=== PATIENT | female | born 1995 | race Caucasian/White ===

== ENCOUNTER 2018-11-29 17:06 | Inpatient (IN) | payer BC, OTHER ==
[2018-11-29] MEDS ORDERED: Sodium Chloride 0.9% 10 ML SDV IV PRN (23:05)
[2018-11-29] MEDS ORDERED: Tranexamic Acid 1,000 MG in Sodium Chloride 0.9% 100 ML IV PRN (23:05)
[2018-11-29] MEDS ORDERED: Nalbuphine 10 MG/1 ML Vial IVPUSH PRN (23:05)
[2018-11-29] MEDS ORDERED: Butorphanol 1 MG/ML SDV IVPUSH PRN (23:05)
[2018-11-29] MEDS ORDERED: Methylergonovine 0.2 MG/1 ML Amp IM PRN (23:05)
[2018-11-29] MEDS ORDERED: Water For Irrigation,Sterile 1,000 ML Container IRR PRN (23:05)
[2018-11-29] MEDS ORDERED: Carboprost Tromethamine 250 MCG/1 ML Amp IM PRN (23:05)
[2018-11-29] MEDS ORDERED: Misoprostol 200 MCG Tab PO PRN (23:05)
[2018-11-29] MEDS ORDERED: Sodium Chloride 0.9% 10 ML Syringe FLUSH PRN (23:05)
[2018-11-29] MEDS ORDERED: Lidocaine 1% 50 ML MDV INJECT PRN (23:05)
[2018-11-29] MEDS ORDERED: Sodium Chloride 0.9% 2.5 ML Syringe FLUSH PRN (23:05)
[2018-11-29] MEDS ORDERED: Oxytocin/0.9 % Sodium Chloride 30 UNIT/500 ML BAG IV SCH (23:15)
[2018-11-30] MEDS: Lactated Ringers 1,000 ML IV SCH ×4 (06:40→18:49)
[2018-11-30] MEDS ORDERED: Bupivacaine 0.25% 10 ML SDV ONE ×2 (06:50→16:03)
[2018-11-30] MEDS ORDERED: fentaNYL 100 MCG/2 ML SDV ONE (06:50)
--- NOTE | 2018-11-30 07:04 | PCM.PREANE ---
Preanesthetic Assessment - Procedure Proposed Procedure: DK - Anesthesia/Transfusion/Family Hx Anesthesia History: No Prior Anesthesia Family History of Anesthesia Reaction: No Transfusion History: No Prior Transfusion(s) Intubation History: Unknown - Review of Systems General: No Symptoms Pulmonary: No Symptoms Cardiovascular: No Symptoms Gastrointestinal: No Symptoms Neurological: No Symptoms Other: Reports: None - Physical Assessment Height: 5 ft Weight: 74.843 kg ASA Class: 2 Mental Status: Alert & Oriented x3 Airway Class: Mallampati = 2 Dentition: Reports: Normal Dentition ROM/Head Extension: Full Lungs: Clear to Auscultation, Normal Respiratory Effort Cardiovascular: Regular Rate, Regular Rhythm - Lab Values: Laboratory Last Values WBC 14.62 K/uL (4.0-11.0) H 11/29/18 23:43 RBC 4.02 M/uL (4.30-5.90) L 11/29/18 23:43 Hgb 12.0 g/dL (12.0-16.0) 11/29/18 23:43 Hct 36.3 % (36.0-46.0) 11/29/18 23:43 MCV 90.3 fL (80.0-98.0) 11/29/18 23:43 MCH 29.9 pg (27.0-32.0) 11/29/18 23:43 MCHC 33.1 g/dL (31.0-37.0) 11/29/18 23:43 RDW Std Deviation 46.1 fl (28.0-62.0) 11/29/18 23:43 RDW Coeff of Abiola 14 % (11.0-15.0) 11/29/18 23:43 Plt Count 212 K/uL (150-400) 11/29/18 23:43 MPV 10.80 fL (7.40-12.00) 11/29/18 23:43 Nucleated RBC % 0.0 /100WBC 11/29/18 23:43 Nucleated RBCs # 0 K/uL 11/29/18 23:43 Membrane Rupture POSITIVE 11/29/18 19:50 Blood Type O POSITIVE 11/29/18 23:43 Antibody Screen NEGATIVE 11/29/18 23:43 - Allergies Allergies/Adverse Reactions: Allergies Allergy/AdvReac Type Severity Reaction Status Date / Time No Known Allergies Allergy Verified 09/09/18 15:38 - Blood Blood Available: No Product(s) Available: None - Anesthesia Plan Pre-Op Medication Ordered: None - Acknowledgements Anesthesia Type Planned: Epidural Pt an Appropriate Candidate for the Planned Anesthesia: Yes Alternatives and Risks of Anesthesia Discussed w Pt/Guardian: Yes Pt/Guardian Understands and Agrees with Anesthesia Plan: Yes PreAnesthesia Questionnaire - Past Health History Medical/Surgical History: Denies Medical/Surgical History HEENT History: Reports: None Cardiovascular History: Reports: None Respiratory History: Reports: Asthma Gastrointestinal History: Reports: None Genitourinary History: Reports: None 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: Musculoskeletal History: Reports: None Neurological History: Reports: None Psychiatric History: Reports: None Endocrine/Metabolic History: Reports: None Hematologic History: Reports: None Immunologic History: Reports: None Oncologic (Cancer) History: Reports: None Dermatologic History: Reports: None - Infectious Disease History Infectious Disease History: Reports: None - Past Surgical History HEENT Surgical History: Reports: None Cardiovascular Surgical History: Reports: None Respiratory Surgical History: Reports: None GI Surgical History: Reports: None Female Surgical History: Reports: None Musculoskeletal Surgical History: Reports: None - SUBSTANCE USE Smoking Status *Q: Never Smoker Second Hand Smoke Exposure: No Recreational Drug Use History: No - HOME MEDS Home Medications: Home Meds PNV #116/Iron Fumarate/FA/DHA [Expecta Combo Pack] 1 tab PO DAILY 09/09 [History] - CURRENT (IN HOUSE) MEDS Current Meds: Current Medications Butorphanol Tartrate (Stadol) 1 mg IVPUSH Q1H PRN PRN Reason: Pain Last Admin: 11/30/18 03:11 Dose: 1 mg Carboprost Tromethamine (Hemabate Ds) 250 mcg IM ASDIRECTED PRN PRN Reason: Post Hemorrhage Tranexamic Acid 1,000 mg/ (Sodium Chloride) 110 mls @ 660 mls/hr IV ONETIME PRN PRN Reason: Bleeding Lactated Ringer's (Ringers, Lactated) 1,000 mls @ 150 mls/hr IV ASDIRECTED VIPIN Last Admin: 11/30/18 06:40 Dose: 999 mls/hr Oxytocin/Sodium Chloride (Oxytocin 30 Unit/500 Ml-Ns) 30 unit in 500 mls @ 500 mls/hr IV TITRATE VIPIN Lidocaine HCl (Xylocaine 1%) 50 ml INJECT ONETIME PRN PRN Reason: Laceration repair Methylergonovine Maleate (Methergine) 0.2 mg IM ASDIRECTED PRN PRN Reason: Post Hemorrhage Misoprostol (Cytotec) 200 mcg PO ONETIME PRN PRN Reason: Post Hemorrhage Nalbuphine HCl (Nubain) 10 mg IVPUSH Q1H PRN PRN Reason: Pain (severe 7-10) Sodium Chloride (Saline Flush) 10 ml FLUSH ASDIRECTED PRN PRN Reason: Keep Vein Open Sodium Chloride (Saline Flush) 2.5 ml FLUSH ASDIRECTED PRN PRN Reason: Keep Vein Open Sodium Chloride (Normal Saline) 10 ml IV ASDIRECTED PRN PRN Reason: IV Use Sterile Water (Sterile Water For Irrigation) 1,000 ml IRR ASDIRECTED PRN PRN Reason: delivery Discontinued Medications Bupivacaine HCl (Sensorcaine-Mpf 0.25%) Confirm Administered Dose 10 ml .ROUTE .STK-MED ONE Stop: 11/30/18 06:51 Fentanyl (Sublimaze) Confirm Administered Dose 100 mcg .ROUTE .STK-MED ONE Stop: 11/30/18 06:51 Fentanyl/Bupivacaine HCl (Ozygoraj-Rhhzn-Pw 2 Mcg/Ml-0.125%) Confirm Administered Dose 100 mls @ as directed .ROUTE .STK-MED ONE Stop: 11/30/18 06:51
[2018-11-30] MEDS ORDERED: Oxytocin/0.9 % Sodium Chloride 30 UNIT/500 ML BAG IV SCH ×2 (09:30→09:45)
[2018-11-30] MEDS ORDERED: ceFAZolin 1 GM in Premix Bag 1 BAG IV ONE (21:12)
[2018-11-30] MEDS ORDERED: Lanolin 100% Cream 7 GM Tube TOP PRN (21:39)
[2018-11-30] MEDS ORDERED: Acetaminophen 500 MG Tab PO PRN ×2 (21:39)
[2018-11-30] MEDS ORDERED: Ibuprofen 400 MG Tab PO PRN (21:39)
[2018-11-30] MEDS ORDERED: Bisacodyl 10 MG Supp RECTAL PRN (21:39)
--- NOTE | 2018-11-30 21:45 | PCM.DEL ---
L & D Note - General Info Date of Service: 11/30/18 - Delivery Note Labor: Augmented by Oxytocin Delivery Outcome: Livebirth Delivery Method: Spontaneous Vaginal Delivery-Single Presentation: Compound (Head, with hand) Nuchal Cord: Present, Reduced Anesthesia Type: Epidural, Local (Lidocaine used due to pain at time of repair.) Amniotic Fluid Description: Meconium at noted at delivery of head/body. Episiotomy Type: None Laceration: 3rd Degree (Partial third degree) Suture type: Vicryl Suture size: 4-0 Placenta: Intact, Spontaneous Estimated Blood Loss: 200 Resuscitation Needed: No - General Info Date of Service: 11/30/18 - Patient Data Weight - Most Recent: 74.843 kg Lab Results Last 24 Hours: Laboratory Results - last 24 hr 11/29/18 11/29/18 Range/Units 23:43 23:43 WBC 14.62 H (4.0-11.0) K/uL RBC 4.02 L (4.30-5.90) M/uL Hgb 12.0 (12.0-16.0) g/dL Hct 36.3 (36.0-46.0) % MCV 90.3 (80.0-98.0) fL MCH 29.9 (27.0-32.0) pg MCHC 33.1 (31.0-37.0) g/dL RDW Std Deviation 46.1 (28.0-62.0) fl RDW Coeff of Abiola 14 (11.0-15.0) % Plt Count 212 (150-400) K/uL MPV 10.80 (7.40-12.00) fL Nucleated RBC % 0.0 /100WBC Nucleated RBCs # 0 K/uL Blood Type O POSITIVE Antibody Screen NEGATIVE Med Orders - Current: Current Medications Discontinued Medications Bupivacaine HCl (Sensorcaine-Mpf 0.25%) Confirm Administered Dose 10 ml .ROUTE .STK-MED ONE Stop: 11/30/18 06:51 Bupivacaine HCl (Sensorcaine-Mpf 0.25%) Confirm Administered Dose 10 ml .ROUTE .STK-MED ONE Stop: 11/30/18 16:04 Butorphanol Tartrate (Stadol) 1 mg IVPUSH Q1H PRN PRN Reason: Pain Last Admin: 11/30/18 03:11 Dose: 1 mg Carboprost Tromethamine (Hemabate Ds) 250 mcg IM ASDIRECTED PRN PRN Reason: Post Hemorrhage Fentanyl (Sublimaze) Confirm Administered Dose 100 mcg .ROUTE .[facility]-MED ONE Stop: 11/30/18 06:51 Tranexamic Acid 1,000 mg/ (Sodium Chloride) 110 mls @ 660 mls/hr IV ONETIME PRN PRN Reason: Bleeding Lactated Ringer's (Ringers, Lactated) 1,000 mls @ 150 mls/hr IV ASDIRECTED VIPIN Last Admin: 11/30/18 18:49 Dose: 150 mls/hr Oxytocin/Sodium Chloride (Oxytocin 30 Unit/500 Ml-Ns) 30 unit in 500 mls @ 500 mls/hr IV TITRATE VIPIN Fentanyl/Bupivacaine HCl (Tczgyznz-Fmhfu-Ul 2 Mcg/Ml-0.125%) Confirm Administered Dose 100 mls @ [facility]: 11/30/18 06:51 Oxytocin/Sodium Chloride (Oxytocin 30 Unit/500 Ml-Ns) 30 unit in 500 mls @ 2 mls/hr IV TITRATE VIPIN; Protocol Oxytocin/Sodium Chloride (Oxytocin 30 Unit/500 Ml-Ns) 30 unit in 500 mls @ 2 mls/hr IV TITRATE VIPIN; Protocol Last Infusion: 11/30/18 20:44 Dose: 999 munits/min, 999 mls/hr Fentanyl/Bupivacaine HCl (Xpayetuc-Ueoah-Jl 2 Mcg/Ml-0.125%) Confirm Administered Dose 100 mls @ as directed .ROUTE .[facility] ONE Stop: 11/30/18 16:03 Cefazolin Sodium/Dextrose 1 gm (/ Premix) 50 mls @ 100 mls/hr IV ONETIME ONE Stop: 11/30/18 21:41 Last Admin: 11/30/18 21:21 Dose: 100 mls/hr Cefazolin Sodium/Dextrose (Ancef) Confirm Administered Dose 50 mls @ as directed .ROUTE .[facility] ONE Stop: 11/30/18 21:19 Lidocaine HCl (Xylocaine 1%) 50 ml INJECT ONETIME PRN PRN Reason: Laceration repair Last Admin: 11/30/18 21:05 Dose: 50 ml Methylergonovine Maleate (Methergine) 0.2 mg IM ASDIRECTED PRN PRN Reason: Post Hemorrhage Misoprostol (Cytotec) 200 mcg PO ONETIME PRN PRN Reason: Post Hemorrhage Nalbuphine HCl (Nubain) 10 mg IVPUSH Q1H PRN PRN Reason: Pain (severe 7-10) Sodium Chloride (Saline Flush) 10 ml FLUSH ASDIRECTED PRN PRN Reason: Keep Vein Open Sodium Chloride (Saline Flush) 2.5 ml FLUSH ASDIRECTED PRN PRN Reason: Keep Vein Open Sodium Chloride (Normal Saline) 10 ml IV ASDIRECTED PRN PRN Reason: IV Use Sterile Water (Sterile Water For Irrigation) 1,000 ml IRR ASDIRECTED PRN PRN Reason: delivery Last Admin: 11/30/18 21:05 Dose: 1,000 ml - Problem List & Annotations (1) Vaginal delivery SNOMED Code(s): 764993673 Code(s): O80 - ENCOUNTER FOR FULL-TERM UNCOMPLICATED DELIVERY Status: Acute Current Visit: Yes (2) Third degree laceration of perineum, type 3a SNOMED Code(s): 732672671 Code(s): O70.21 - THIRD DEGREE PERINEAL LACERATION DURING DELIVERY, IIIA Status: Acute Current Visit: Yes - Problem List Review Problem List Initiated/Reviewed/Updated: Yes - My Orders Last 24 Hours: My Active Orders 11/30/18 21:38 Resuscitation Status Routine 11/30/18 21:39 Patient Status [ADT] Routine May Shower [RC] ASDIRECTED Up ad [place] [RC] ASDIRECTED Vital Signs [RC] PER UNIT ROUTINE Acetaminophen [Tylenol Extra Strength] 1,000 mg PO Q4H PRN Acetaminophen [Tylenol Extra Strength] 500 mg PO Q4H PRN Benzocaine/Menthol [Dermoplast Pain Relief 20%-0.5% [place]] 78 gm TOP ASDIRECTED PRN Bisacodyl [Dulcolax] 10 mg RECTAL ONETIME PRN Docusate Sodium [Colace] 100 mg PO BID PRN Ibuprofen [Motrin] 400 mg PO Q4H PRN Ibuprofen [Motrin] 800 mg PO Q6H PRN Lanolin [Lansinoh HPA] See Dose Instructions TOP ASDIRECTED PRN Witch Christine [Tucks] 1 pad TOP ASDIRECTED PRN oxyCODONE 5 mg PO Q2H PRN Assess Lochia [WOMSER] Per Unit Routine Assess Uterine Involution [WOMSER] Per Unit Routine Peripheral IV Discontinue [OM.PC] Routine 12/01/18 05:11 HEMOGLOBIN/HEMATOCRIT,HH [HEME] Timed - Assessment Assessment:: Mother and baby doing well. - Plan Plan:: To post- recovery.
[2018-11-30] MEDS: Witch Hazel Medicated Pads 40/Jar TOP PRN (22:09)
[2018-11-30] MEDS: Docusate Sodium 100 MG Cap PO PRN (22:09)
[2018-11-30] MEDS: Benzocaine/Menthol 20%-0.5% Spray 78 GM Cannister TOP PRN (22:10)
[2018-12-01] MEDS: oxyCODONE 5 MG Tab PO PRN ×3 (00:19→15:38)
[2018-12-01] MEDS: Ibuprofen 800 MG Tab PO PRN ×4 (00:20→20:29)
--- NOTE | 2018-12-01 08:01 | PCM.PNPP ---
- General Info Date of Service: 12/01/18 Functional Status: Reports: Pain Controlled, Tolerating Diet, Ambulating, Urinating - Review of Systems General: Denies: Fever, Weakness, Fatigue Pulmonary: Denies: Shortness of Breath, Pleuritic Chest Pain, Cough Cardiovascular: Denies: Chest Pain, Palpitations, Dyspnea on Exertion Gastrointestinal: Denies: Abdominal Pain Genitourinary: Denies: Dysuria - General Info Date of Service: 12/01/18 - Patient Data Vital Signs - Most Recent: Last Vital Signs Temp 36.9 C 12/01/18 04:40 Pulse 97 12/01/18 04:40 Resp 16 12/01/18 04:40 BP 94/50 L 12/01/18 04:40 Pulse Ox 96 12/01/18 04:40 Weight - Most Recent: 74.843 kg Lab Results - Last 24 Hours: Laboratory Results - last 24 hr 12/01/18 Range/Units 05:18 Hgb 10.0 L (12.0-16.0) g/dL Hct 30.7 L (36.0-46.0) % Med Orders - Current: Current Medications Acetaminophen (Tylenol Extra Strength) 500 mg PO Q4H PRN PRN Reason: Pain Acetaminophen (Tylenol Extra Strength) 1,000 mg PO Q4H PRN PRN Reason: Pain Benzocaine/Menthol (Dermoplast Pain Relief 20%-0.5% [place]) 78 gm TOP ASDIRECTED PRN PRN Reason: Perineal Comfort Measure Last Admin: 11/30/18 22:10 Dose: 1 can Bisacodyl (Dulcolax) 10 mg RECTAL ONETIME PRN PRN Reason: Constipation Docusate Sodium (Colace) 100 mg PO BID PRN PRN Reason: Constipation Last Admin: 11/30/18 22:09 Dose: 100 mg Emollient Ointment (Lansinoh Hpa) 0 gm TOP ASDIRECTED PRN PRN Reason: Sore Nipples Ibuprofen (Motrin) 400 mg PO Q4H PRN PRN Reason: Pain Ibuprofen (Motrin) 800 mg PO Q6H PRN PRN Reason: Pain Last Admin: 12/01/18 07:47 Dose: 800 mg Oxycodone HCl (Oxycodone) 5 mg PO Q2H PRN PRN Reason: Pain Last Admin: 12/01/18 07:46 Dose: 5 mg Witch Christine (Tucks) 1 pad TOP ASDIRECTED PRN PRN Reason: comfort care Last Admin: 11/30/18 22:09 Dose: 1 tub Discontinued Medications Bupivacaine HCl (Sensorcaine-Mpf 0.25%) Confirm Administered Dose 10 ml .ROUTE .STK-MED ONE Stop: 11/30/18 06:51 Bupivacaine HCl (Sensorcaine-Mpf 0.25%) Confirm Administered Dose 10 ml .ROUTE .STK-MED ONE Stop: 11/30/18 16:04 Butorphanol Tartrate (Stadol) 1 mg IVPUSH Q1H PRN PRN Reason: Pain Last Admin: 11/30/18 03:11 Dose: 1 mg Carboprost Tromethamine (Hemabate Ds) 250 mcg IM ASDIRECTED PRN PRN Reason: Post Hemorrhage Fentanyl (Sublimaze) Confirm Administered Dose 100 mcg .ROUTE .STK-MED ONE Stop: 11/30/18 06:51 Tranexamic Acid 1,000 mg/ (Sodium Chloride) 110 mls @ 660 mls/hr IV ONETIME PRN PRN Reason: Bleeding Lactated Ringer's (Ringers, Lactated) 1,000 mls @ 150 mls/hr IV ASDIRECTED VIPIN Last Admin: 11/30/18 18:49 Dose: 150 mls/hr Oxytocin/Sodium Chloride (Oxytocin 30 Unit/500 Ml-Ns) 30 unit in 500 mls @ 500 mls/hr IV TITRATE VIPIN Fentanyl/Bupivacaine HCl (Shosfcjc-Wygkr-Xh 2 Mcg/Ml-0.125%) Confirm Administered Dose 100 mls @ as directed .ROUTE .STK-MED ONE Stop: 11/30/18 06:51 Oxytocin/Sodium Chloride (Oxytocin 30 Unit/500 Ml-Ns) 30 unit in 500 mls @ 2 mls/hr IV TITRATE VIPIN; Protocol Oxytocin/Sodium Chloride (Oxytocin 30 Unit/500 Ml-Ns) 30 unit in 500 mls @ 2 mls/hr IV TITRATE VIPIN; Protocol Last Infusion: 11/30/18 20:44 Dose: 999 munits/min, 999 mls/hr Fentanyl/Bupivacaine HCl (Tujqhmin-Exlek-Om 2 Mcg/Ml-0.125%) Confirm Administered Dose 100 mls @ as directed .ROUTE .STK-MED ONE Stop: 11/30/18 16:03 Cefazolin Sodium/Dextrose 1 gm (/ Premix) 50 mls @ 100 mls/hr IV ONETIME ONE Stop: 11/30/18 21:41 Last Admin: 11/30/18 21:21 Dose: 100 mls/hr Cefazolin Sodium/Dextrose (Ancef) Confirm Administered Dose 50 mls @ as directed .ROUTE .STK-MED ONE Stop: 11/30/18 21:19 Lidocaine HCl (Xylocaine 1%) 50 ml INJECT ONETIME PRN PRN Reason: Laceration repair Last Admin: 11/30/18 21:05 Dose: 50 ml Methylergonovine Maleate (Methergine) 0.2 mg IM ASDIRECTED PRN PRN Reason: Post Hemorrhage Misoprostol (Cytotec) 200 mcg PO ONETIME PRN PRN Reason: Post Hemorrhage Nalbuphine HCl (Nubain) 10 mg IVPUSH Q1H PRN PRN Reason: Pain (severe 7-10) Sodium Chloride (Saline Flush) 10 ml FLUSH ASDIRECTED PRN PRN Reason: Keep Vein Open Sodium Chloride (Saline Flush) 2.5 ml FLUSH ASDIRECTED PRN PRN Reason: Keep Vein Open Sodium Chloride (Normal Saline) 10 ml IV ASDIRECTED PRN PRN Reason: IV Use Sterile Water (Sterile Water For Irrigation) 1,000 ml IRR ASDIRECTED PRN PRN Reason: delivery Last Admin: 11/30/18 21:05 Dose: 1,000 ml - Interaction Disposition, : [place] in Room with Family Infant Interaction: Holding Infant Infant Feeding: Breastfed ; Nursed Well Support Person: - Recovery Exam Fundal Tone: Firm Fundal Level: At Umbilicus Fundal Placement: Midline Lochia Amount: Scant Lochia Color: Rubra/Red Perineum Description: Intact, Minimal Bruising/Swelling Episiotomy/Laceration: Approximated Bladder Status: Voiding Urinary Elimination: Voided - Exam Neck: Supple Lungs: Clear to Auscultation, Normal Respiratory Effort Cardiovascular: Regular Rate, Regular Rhythm GI/Abdominal Exam: Normal Bowel Sounds, Soft, Non-Tender, No Distention, No Abnormal Bruit Extremities: Normal Inspection, Non-Tender, Normal Capillary Refill, Pedal Edema (trace) Skin: Warm, Dry, Intact - Problem List Review Problem List Initiated/Reviewed/Updated: Yes - Assessment Assessment:: PPD #1 s/p . Minimal pain and lochia. Work on breast feeding today. Anticipate discharge home tomorrow.. - Plan Plan:: Continue routine cares. Aim for discharge home tomorrow.
[2018-12-01] MEDS: Docusate Sodium 100 MG Cap PO PRN ×2 (11:15→20:29)
[2018-12-02] MEDS: Ibuprofen 800 MG Tab PO PRN (05:07)
--- NOTE | 2018-12-02 07:59 | PCM.PNPP ---
- General Info Date of Service: 12/02/18 Functional Status: Reports: Pain Controlled, Tolerating Diet, Ambulating, Urinating - Review of Systems General: Denies: Fever, Weakness, Fatigue Pulmonary: Denies: Shortness of Breath, Pleuritic Chest Pain, Cough Cardiovascular: Denies: Chest Pain, Palpitations, Dyspnea on Exertion Gastrointestinal: Denies: Abdominal Pain Genitourinary: Denies: Dysuria - General Info Date of Service: 12/02/18 - Patient Data Vital Signs - Most Recent: Last Vital Signs Temp 36.3 C 12/02/18 07:32 Pulse 87 12/02/18 07:32 Resp 16 12/02/18 07:32 BP 95/52 L 12/02/18 07:32 Pulse Ox 97 12/02/18 07:32 Weight - Most Recent: 74.843 kg Med Orders - Current: Current Medications Acetaminophen (Tylenol Extra Strength) 500 mg PO Q4H PRN PRN Reason: Pain Acetaminophen (Tylenol Extra Strength) 1,000 mg PO Q4H PRN PRN Reason: Pain Benzocaine/Menthol (Dermoplast Pain Relief 20%-0.5% [place]) 78 gm TOP ASDIRECTED PRN PRN Reason: Perineal Comfort Measure Last Admin: 11/30/18 22:10 Dose: 1 can Bisacodyl (Dulcolax) 10 mg RECTAL ONETIME PRN PRN Reason: Constipation Docusate Sodium (Colace) 100 mg PO BID PRN PRN Reason: Constipation Last Admin: 12/01/18 20:29 Dose: 100 mg Emollient Ointment (Lansinoh Hpa) 0 gm TOP ASDIRECTED PRN PRN Reason: Sore Nipples Last Admin: 12/01/18 09:34 Dose: 7 gm Ibuprofen (Motrin) 400 mg PO Q4H PRN PRN Reason: Pain Ibuprofen (Motrin) 800 mg PO Q6H PRN PRN Reason: Pain Last Admin: 12/02/18 05:07 Dose: 800 mg Oxycodone HCl (Oxycodone) 5 mg PO Q2H PRN PRN Reason: Pain Last Admin: 12/01/18 15:38 Dose: 5 mg Witch Christine (Tucks) 1 pad TOP ASDIRECTED PRN PRN Reason: comfort care Last Admin: 11/30/18 22:09 Dose: 1 tub Discontinued Medications Bupivacaine HCl (Sensorcaine-Mpf 0.25%) Confirm Administered Dose 10 ml .ROUTE .[facility]-MED ONE Stop: 11/30/18 06:51 Last Admin: 12/01/18 20:10 Dose: Not Given Bupivacaine HCl (Sensorcaine-Mpf 0.25%) Confirm Administered Dose 10 ml .ROUTE .[facility] ONE Stop: 11/30/18 16:04 Last Admin: 12/01/18 20:10 Dose: Not Given Butorphanol Tartrate (Stadol) 1 mg IVPUSH Q1H PRN PRN Reason: Pain Last Admin: 11/30/18 03:11 Dose: 1 mg Carboprost Tromethamine (Hemabate Ds) 250 mcg IM ASDIRECTED PRN PRN Reason: Post Hemorrhage Fentanyl (Sublimaze) Confirm Administered Dose 100 mcg .ROUTE .[facility] ONE Stop: 11/30/18 06:51 Last Admin: 12/01/18 20:10 Dose: Not Given Tranexamic Acid 1,000 mg/ (Sodium Chloride) 110 mls @ 660 mls/hr IV ONETIME PRN PRN Reason: Bleeding Lactated Ringer's (Ringers, Lactated) 1,000 mls @ 150 mls/hr IV ASDIRECTED VIPIN Last Admin: 11/30/18 18:49 Dose: 150 mls/hr Oxytocin/Sodium Chloride (Oxytocin 30 Unit/500 Ml-Ns) 30 unit in 500 mls @ 500 mls/hr IV TITRATE VIPIN Fentanyl/Bupivacaine HCl (Kbyumhgn-Bhqfy-Of 2 Mcg/Ml-0.125%) Confirm Administered Dose 100 mls @ as directed .ROUTE .[facility] ONE Stop: 11/30/18 06:51 Last Admin: 12/01/18 20:10 Dose: Not Given Oxytocin/Sodium Chloride (Oxytocin 30 Unit/500 Ml-Ns) 30 unit in 500 mls @ 2 mls/hr IV TITRATE VIPIN; Protocol Oxytocin/Sodium Chloride (Oxytocin 30 Unit/500 Ml-Ns) 30 unit in 500 mls @ 2 mls/hr IV TITRATE VIPIN; Protocol Last Infusion: 11/30/18 20:44 Dose: 999 munits/min, 999 mls/hr Fentanyl/Bupivacaine HCl (Lfqdjdde-Iehch-Se 2 Mcg/Ml-0.125%) Confirm Administered Dose 100 mls @ as directed .ROUTE .STK-MED ONE Stop: 11/30/18 16:03 Last Admin: 12/01/18 20:10 Dose: Not Given Cefazolin Sodium/Dextrose 1 gm (/ Premix) 50 mls @ 100 mls/hr IV ONETIME ONE Stop: 11/30/18 21:41 Last Admin: 11/30/18 21:21 Dose: 100 mls/hr Cefazolin Sodium/Dextrose (Ancef) Confirm Administered Dose 50 mls @ as directed .ROUTE .STK-MED ONE Stop: 11/30/18 21:19 Last Admin: 12/01/18 20:10 Dose: Not Given Lidocaine HCl (Xylocaine 1%) 50 ml INJECT ONETIME PRN PRN Reason: Laceration repair Last Admin: 11/30/18 21:05 Dose: 50 ml Methylergonovine Maleate (Methergine) 0.2 mg IM ASDIRECTED PRN PRN Reason: Post Hemorrhage Misoprostol (Cytotec) 200 mcg PO ONETIME PRN PRN Reason: Post Hemorrhage Nalbuphine HCl (Nubain) 10 mg IVPUSH Q1H PRN PRN Reason: Pain (severe 7-10) Sodium Chloride (Saline Flush) 10 ml FLUSH ASDIRECTED PRN PRN Reason: Keep Vein Open Sodium Chloride (Saline Flush) 2.5 ml FLUSH ASDIRECTED PRN PRN Reason: Keep Vein Open Sodium Chloride (Normal Saline) 10 ml IV ASDIRECTED PRN PRN Reason: IV Use Sterile Water (Sterile Water For Irrigation) 1,000 ml IRR ASDIRECTED PRN PRN Reason: delivery Last Admin: 11/30/18 21:05 Dose: 1,000 ml - Infant Interaction Infant Disposition, : in Room with Family Interaction: Holding Feeding: Breastfed ; Nursed Well Support Person: - Recovery Exam Fundal Tone: Firm Fundal Level: At Umbilicus Fundal Placement: Midline Lochia Amount: Scant Lochia Color: Rubra/Red Perineum Description: Edematous Other Perinuem Description: Third degree laceration,repaired Episiotomy/Laceration: Approximated Bladder Status: Nonpalpable, Voiding Urinary Elimination: Voided - Exam General: Alert, Oriented Neck: Supple Lungs: Clear to Auscultation, Normal Respiratory Effort Cardiovascular: Regular Rate, Regular Rhythm GI/Abdominal Exam: Normal Bowel Sounds, Soft, Non-Tender, No Distention Extremities: Normal Inspection, Non-Tender, Normal Capillary Refill, Pedal Edema (trace) Skin: Warm, Dry, Intact - Problem List & Annotations (1) Vaginal delivery SNOMED Code(s): 833550508 Code(s): O80 - ENCOUNTER FOR FULL-TERM UNCOMPLICATED DELIVERY Status: Acute Current Visit: Yes - Problem List Review Problem List Initiated/Reviewed/Updated: Yes - Assessment Assessment:: PPD #2 s/p . Minimal pain and lochia. Breast feeding well. Discharge home today. - Plan Plan:: Discharge instructions reviewed. Pelvic rest for 6 weeks. Can use OTC ibuprofen/ tylenol as needed for pain. Continue PNV while breast feeding. Instructed patient to call if she develops fever greater than 101 or bleeding through a large pad/hr. F/U with [facility] in 6 weeks
[2018-12-02] MEDS: Witch Hazel Medicated Pads 40/Jar TOP PRN (08:21)
[2018-12-02] MEDS: Benzocaine/Menthol 20%-0.5% Spray 78 GM Cannister TOP PRN (08:22)
== END 2018-12-02 11:45 | disposition home or self-care (01) | DRG 542 ==
LOC: MW.OBCHECK 17:06 → MW.OB 17:09 → MW.OBCHECK 23:05 → OBSVTOIN 11-30 20:44 → MW.OB 12-01 00:29
PROVIDERS: ADMIT Obstetrics & Gynecology; ATTEND Obstetrics & Gynecology
PROC: 10E0XZZ Delivery of Products of Conception, External Approach (ICD-10-PCS; principal; 2018-11-30)
PROC: 0DQR0ZZ Repair Anal Sphincter, Open Approach (ICD-10-PCS; 2018-11-30)
PROC: 10H07YZ Insertion of Other Device into Products of Conception, Via Natural or Artificial Opening (ICD-10-PCS; 2018-11-30)
DX: O48.0 Post-term pregnancy (principal); O69.81X0 Labor and delivery complicated by cord around neck, without compression, not applicable or unspecified; O77.0 Labor and delivery complicated by meconium in amniotic fluid; O70.21 Third degree perineal laceration during delivery, IIIa; O99.52 Diseases of the respiratory system complicating childbirth; J45.909 Unspecified asthma, uncomplicated; Z3A.41 41 weeks gestation of pregnancy; Z37.0 Single live birth
CPT/HCPCS: 36415; 51702; 59025; 59409; 84112; 85014; 85018; 85027; 86850; 86900; 86901; A9270-GY; J0595; J0690; J2001; J2590; J3010; J3490; J7120